=== PATIENT | male | born 1995 | race Caucasian/White ===

== ENCOUNTER 2018-06-01 06:43 | Emergency (ER) | payer OTHER ==
[~2018-06-01] VITALS: Ht 162.6 cm; Wt 67.0 kg
[2018-06-01] MEDS ORDERED: IBUPROFEN 800MG TABLET PO ONE (07:45)
[2018-06-01 09:41] VITALS: BP 122/74
== END 2018-06-01 10:00 | disposition home or self-care (01) ==
LOC: ER 06:43
DX: S60.222A Contusion of left hand, initial encounter (principal); S60.212A Contusion of left wrist, initial encounter; F12.10 Cannabis abuse, uncomplicated; W22.8XXA Striking against or struck by other objects, initial encounter; Y93.89 Activity, other specified; Y92.89 Other specified places as the place of occurrence of the external cause; Y99.8 Other external cause status; Z91.018 Allergy to other foods
CPT/HCPCS: 73110; 73130; 99283